=== PATIENT | male | born 1965 | race Caucasian/White ===

== ENCOUNTER 2020-03-29 13:53 | Inpatient (IN) | payer OTHER ==
--- NOTE | 2020-03-29 14:01 | BHS.RME ---
Substance Use & Tx History - Substance Use History Alcohol Substance amount: 1 pint vodka up to /5 Frequency of use: Daily Substance route: Oral Date of Last Use: 03/28/20 (started age 25) Heroin Substance amount: 1 gram Frequency of use: Daily Substance route: Inhalation (ex: sniffing or snorting) Date of Last Use: 03/27/20 (started age 41) Nicotine Substance amount: former smoker Physical/Psych/Mental Status - Behavior General Behavior: Increased activity (restlessness, agitation) Eye Contact: Normal - Cooperativeness Cooperativeness: Cooperative - Thinking Thought Processes: Tight, Logical, Goal Directed - Physical Health Problems Is patient presently having any pain?: No Does patient presently have any injuries (include location): No Does patient currently have a fever: No Is patient : No COWS - Scale Resting Pulse: 1= WA 81-100 Sweatin=Flushed/Facial Moisture Restless Observation: 1= Difficult to Sit Still Pupil Size: 1= Pupils >than Normal Bone or Joint Aches: 1= Mild Discomfort Runny Nose/ Eye Tearin= Nasal Congestion GI Upset > 30mins: 1= Stomach Cramp Tremor Observation: 1= Tremor [place], Not Seen Yawning Observation: 1= 1-2x During Session Anxiety or Irritability: 1=Feels Anxious/Irritable Goose Flesh Skin: 3=Piloerection COWS Score: 14 CIWA Nausea/Vomitin-Mild Nausea/No Vomiting Muscle Tremors: 4-Moderate,w/Arms Extend Anxiety: 3 Agitation: 3 Paroxysmal Sweats: 1-Minimal Palms Moist Orientation: 1-Uncertain about Date Tacttile Disturbances: 1-Very Mild Itch/Numbness Auditory Disturbances: 0-None Visual Disturbances: 0-None Headache: 2-Mild CIWA-Ar Total Score: 16
--- NOTE | 2020-03-29 14:34 | HP ---
COWS - Scale Resting Pulse: 1= MT 81-100 Sweatin=Flushed/Facial Moisture Restless Observation: 1= Difficult to Sit Still Pupil Size: 1= Pupils >than Normal Bone or Joint Aches: 1= Mild Discomfort Runny Nose/ Eye Tearin= Nasal Congestion GI Upset > 30mins: 1= Stomach Cramp Tremor Observation: 1= Tremor [place], Not Seen Yawning Observation: 1= 1-2x During Session Anxiety or Irritability: 1=Feels Anxious/Irritable Goose Flesh Skin: 3=Piloerection COWS Score: 14 CIWA Score Nausea/Vomitin-Mild Nausea/No Vomiting Muscle Tremors: 4-Moderate,w/Arms Extend Anxiety: 3 Agitation: 3 Paroxysmal Sweats: 1-Minimal Palms Moist Orientation: 1-Uncertain about Date Tacttile Disturbances: 1-Very Mild Itch/Numbness Auditory Disturbances: 0-None Visual Disturbances: 0-None Headache: 2-Mild CIWA-Ar Total Score: 16 - Admission Criteria [facility] Guidelines: Admission for Medically Managed Detox: Requires at least one of the followin. CIWA greater than 12 2. Seizures within the past 24 hours 3. Delirium tremens within the past 24 hours 4. Hallucinations within the past 24 hours 5. Acute intervention needed for co occurring medical disorder 6. Acute intervention needed for co occurring psychiatric disorder 7. Severe withdrawal that cannot be handled at a lower level of care (continued vomiting, continued diarrhea, abnormal vital signs) requiring intravenous medication and/or fluids 8. Admitting History and Physical - Admission Chief Complaint: Pt is a 54 yo M presenting for alcohol detox, patient has history of heroin use but persistently refuses methadone; "feeling sorry for myself for relapsing." History of Present Illness: Pt is a 54 yo M presenting for alcohol detox, patient has history of heroin use but persistently refuses methadone; "feeling sorry for myself for relapsing." Pt reports history of alcohol, heroin, and cocaine dependence. Pt was sober since 2014 and relapsed approximately 28 days ago. Pt reports possible trigger is of father in late December. Pt communicates frequently with his sponsors from AA/NA/[facility]. Pt meets criteria 2/2 to medical comorbidities. PMH - HCV+ (since 2002, viral load neg since 2003, untreated), HLD (takes simvastatin 20 mg qhs), osteoarthritis (motrin prn) PSH - tonsillectomy when younger Psych - ADHD; pt with possible hx of depression/bipolar (pt is non-specific regarding history; with possible hx of anti-depressant medications); no med ications currently Soc/Dom - lives in [place] - none currently; parole for criminal mischief in the 3rd degree Substance Use & Tx History - Substance Use History Alcohol Substance amount: 1 pint vodka up to 1/5 Frequency of use: Daily Substance route: Oral Date of Last Use: 03/28/20 (started age 25) Heroin Substance amount: 1 gram Frequency of use: Daily Substance route: Inhalation (ex: sniffing or snorting) Date of Last Use: 03/27/20 (started age 41) Cocaine amt - $200 worth per day frequency - daily date of last use: 03/27/20 Nicotine Substance amount: former smoker (quit 2014) History Source: Patient Limitations to Obtaining History: No Limitations Admission ROS S - HPI Allergies/Adverse Reactions: Allergies Allergy/AdvReac Type Severity Reaction Status Date / Time atorvastatin [From Lipitor] Allergy Verified 03/29/20 14:21 - Ebola screening Have you traveled outside of the country in the last 21 days: No Have you been sick,other than usual withdrawal symptoms: No Do you have a fever: Yes - Review of Systems Constitutional: Chills, Diaphoresis EENT: reports: No Symptoms Reported Respiratory: reports: No Symptoms reported Cardiac: reports: No Symptoms Reported GI: reports: Nausea : reports: No Symptoms Reported Musculoskeletal: reports: Joint Pain (chronic L knee pain fue to osteoarthritis) Integumentary: reports: Flushing, Pruritus, Rash (pt reports posion zeke; some scabs from recent bicycle injury (was treated [facility])) Neuro: reports: Headache, Tremors (mild tremors that can be seen) Endocrine: reports: No Symptoms Reported Hematology: reports: No Symptoms Reported Psychiatric: reports: Agitated, Anxious Patient History - Smoking Cessation Smoking history: Former smoker Have you smoked in the past 12 months: No Hx Chewing Tobacco Use: No Initiated information on smoking cessation: No Admission Physical Exam S - Vital Signs Vital Signs: BP 128/77 HR 81 RR 14 T 97.6 O2 sat 98% - Physical General Appearance: Yes: No Apparent Distress, Nourished, Appropriately Dressed HEENTM: Yes: EOMI, Hearing grossly Normal, Normocephalic, Normal Voice, M icrocephalic Respiratory: Yes: Lungs Clear, Normal Breath Sounds, No Respiratory Distress, No Accessory Muscle Use Neck: Yes: Supple, Trachea in good position Breast: Yes: Breast Exam Deferred Cardiology: Yes: Regular Rhythm, Regular Rate Abdominal: Yes: Normal Bowel Sounds, Non Tender, Soft Genitourinary: Yes: Other (deferred) Back: Yes: Normal Inspection Musculoskeletal: Yes: full range of Motion, Gait Steady Extremities: Yes: Normal Inspection, Normal Range of Motion, Non-Tender, Tremors (mild tremors) Neurological: Yes: Fully Oriented, Alert, Motor Strength 5/5, Normal Mood/Affect, Normal Response Integumentary: Yes: Normal Color, Dry, Clammy, Diaphoresis, Moist, Rash (R upper chest and R upper arm mild rash - "from posion zeke"), Other (rashes with excoriations; from itching the poison zeke rash" discoloration and multiple healing wounds in b/l lower extremities - pt was evaluated at [facility] and cleared without concerning findings, per pt. R index finger with healing wound from knife. Multiple scabs in all extremities from work-related injuries and excoriations.) - Diagnostic (1) HLD (hyperlipidemia) Current Visit: Yes Status: Acute (2) ADHD Current Visit: Yes Status: Chronic Qualifiers: Attention deficit-hyperactivity disorder type: unspecified Qualified Code(s): F90.9 - Attention-deficit hyperactivity disorder, unspecified type (3) Alcohol dependence Current Visit: Yes Status: Acute Qualifiers: Substance use status: in withdrawal Complication of substance-induced condition: uncomplicated Qualified Code(s): F10.230 - Alcohol dependence with withdrawal, uncomplicated (4) Opioid dependence Current Visit: Yes Status: Acute Qualifiers: Substance use status: uncomplicated Qualified Code(s): F11.20 - Opioid dependence, uncomplicated (5) Cocaine dependence Current Visit: Yes Status: Acute Qualifiers: Substance use status: uncomplicated Qualified Code(s): F14.20 - Cocaine dependence, uncomplicated (6) Osteoarthritis Current Visit: Yes Status: Chronic Qualifiers: Osteoarthritis location: knee Osteoarthritis type: primary Laterality: left Qualified Code(s): M17.12 - Unilateral primary osteoarthritis, left knee Cleared for Admission [facility] - Detox or Rehab [facility] Level of Care: Medically Managed Detox Regimen/Protocol: Librium Breathalyzer - Breathalyzer Breathalyzer: 0 Urine Drug Screen - Test Device Lot number: [id number] Expiration date: 10/05/21 - Control Is test valid?: Yes - Results Urine drug screen results: [facility]-Cocaine Inpatient Rehab Admission - Rehab Decision to Admit Inpatient rehab admission?: No
[2020-03-29] MEDS ORDERED: NICOTINE POLACRILEX 2 MG GUM BUC PRN (14:50)
[2020-03-29] MEDS ORDERED: MENTHOL/PHENOL 1 EACH UD MM PRN (14:50)
[2020-03-29] MEDS ORDERED: MAGNESIUM HYDROX 2400MG/30ML ORAL SUSPENSION 30 ML CUP PO PRN (14:50)
[2020-03-29] MEDS ORDERED: METHOCARBAMOL 500 MG TABLET PO PRN (14:50)
[2020-03-29] MEDS ORDERED: MAGNESIUM CITRATE 300 ML BOTTLE PO PRN (14:50)
[2020-03-29] MEDS ORDERED: MAG HYDROX/AL HYDROX/SIMETH 30 ML UNIT-DOSE CUP PO PRN (14:50)
[2020-03-29] MEDS ORDERED: ACETAMINOPHEN 325 MG TABLET (FP) PO PRN ×2 (14:50)
[2020-03-29] MEDS ORDERED: ONDANSETRON *ODT* 4 MG TABLET SL PRN (14:50)
[2020-03-29] MEDS ORDERED: chlordiazePOXIDE HCL 25 MG CAPSULE PO PRN (14:50)
[2020-03-29] MEDS ORDERED: BISMUTH SUBSALICYLATE 262 MG/15 ML BTL PO PRN (14:50)
[2020-03-29 15:44] LABS: HEMATOCRIT 44.5 % (35.4-49); HEMOGLOBIN 14.7 GM/dL (11.7-16.9); MCH 29.4 pg (25.7-33.7); MCHC 33.1 g/dl (32.0-35.9); MEAN CELL VOLUME 88.9 fl (80-96); PLATELET COUNT 327 K/MM3 (134-434); RBC 5.01 M/mm3 (4.00-5.60); RDW 13.3 % (11.9-15.9); WHITE BLOOD COUNT 5.1 K/mm3 (4.0-10.0)
[2020-03-29 15:55] LABS: ALBUMIN 3.5 g/dl (3.4-5.0); BILIRUBIN,TOTAL 0.2 mg/dL (0.2-1); BLOOD UREA NITROGEN 23.8 mg/dL (7-18); CALCIUM 8.6 mg/dL (8.5-10.1); CREATININE 0.8 mg/dL (0.55-1.3); POTASSIUM 4.2 mmol/L (3.5-5.1)
[2020-03-29] MEDS ORDERED: chlordiazePOXIDE HCL 25 MG CAPSULE PO SCH (17:00)
[2020-03-29] MEDS ORDERED: hydrOXYzine PAMOATE 25 MG CAPSULE (FP) PO SCH (18:00)
[2020-03-29] MEDS: IBUPROFEN 400 MG TABLET (FP) PO PRN (18:27)
[2020-03-29] MEDS ORDERED: LORazepam 1 MG TABLET PO PRN (21:11)
[2020-03-29] MEDS: MELATONIN 5 MG TABLETS PO SCH (23:24)
[2020-03-29] MEDS: THIAMINE HCL 100 MG TABLET (FP) PO SCH (23:24)
[2020-03-30] MEDS: LORazepam 2 MG TABLET PO SCH ×5 (00:47→22:47)
--- NOTE | 2020-03-30 09:55 | EKG ---
Test Reason : Blood Pressure : / mmHG Vent. Rate : 083 BPM Atrial Rate : 083 BPM P-R Int : 184 ms QRS Dur : 078 ms QT Int : 350 ms P-R-T Axes : 049 045 053 degrees QTc Int : 411 ms NORMAL SINUS RHYTHM NORMAL ECG NO PREVIOUS ECGS AVAILABLE Confirmed by LESLI CISNEROS MD ([id number]) on 03/30/2020 9:55:41 AM Referred By: Confirmed By:LESLI CISNEROS MD
--- NOTE | 2020-03-30 09:58 | PN ---
Teaching Attending Note Name of Resident: Michael Hough ATTENDING PHYSICIAN STATEMENT I saw and evaluated the patient. I reviewed the resident's note and discussed the case with the resident. I agree with the resident's findings and plan as documented. SUBJECTIVE: OBJECTIVE: ASSESSMENT AND PLAN: 1. Alcohol withdrawal 2. Opiate use Plan 1. Librium detox 2. Pt requests no methadone due to prior adverse reaction
[2020-03-30] MEDS: PRENATAL VITAMINS W/ FOLIC ACID TABLET (FP) PO SCH (10:38)
[2020-03-30] MEDS ORDERED: FUROSEMIDE 20 MG TABLET (FP) PO ONE (13:51)
--- NOTE | 2020-03-30 13:51 | PN ---
[facility] CIWA - CIWA Score Nausea/Vomitin-No Nausea/No Vomiting Muscle Tremors: 3 Anxiety: 2 Agitation: 2 Paroxysmal Sweats: 2 Orientation: 0-Oriented Tacttile Disturbances: 0-None Auditory Disturbances: 0-None Visual Disturbances: 0-None Headache: 0-None Present CIWA-Ar Total Score: 9 BHS Progress Note (SOAP) Subjective: sweats feet swelling restless agitation body aches Objective: 03/30/20 13:49 Vital Signs Temperature 97.5 F L 03/30/20 12:28 Pulse Rate 87 03/30/20 12:28 Respiratory Rate 18 03/30/20 12:28 Blood Pressure 121/79 03/30/20 12:28 O2 Sat by Pulse Oximetry (%) 95 03/30/20 12:28 Laboratory Tests 03/29/20 03/29/20 03/29/20 14:55 14:55 14:55 WBC 5.1 RBC 5.01 Hgb 14.7 Hct 44.5 MCV 88.9 MCH 29.4 MCHC 33.1 RDW 13.3 Plt Count 327 MPV 8.0 Sodium 140 Potassium 4.2 Chloride 109 H Carbon Dioxide 23 Anion Gap 8 BUN 23.8 H Creatinine 0.8 Est GFR (CKD-EPI)AfAm 118.20 Est GFR (CKD-EPI)NonAf 101.99 Random Glucose 108 H Calcium 8.6 Total Bilirubin 0.2 AST 11 L ALT 25 Alkaline Phosphatase 123 H Total Protein 7.0 Albumin 3.5 Syphilis Serology Non-reactive labs noted aaox3 ambulating no acute distress Assessment: 03/30/20 13:50 withdrawals pt refused methadone for detox; claims his feet swell up. during this stay in our detox no methadone taper was ordered some minor feet swelling noted; encouraged feet elevation and lasix 20mg x one ordered Plan: continue detox as ordered
[2020-03-30] MEDS: THIAMINE HCL 100 MG TABLET (FP) PO SCH (22:47)
[2020-03-30] MEDS: MELATONIN 5 MG TABLETS PO SCH (22:48)
[2020-03-31] MEDS ORDERED: chlordiazePOXIDE HCL 25 MG CAPSULE PO SCH (05:00)
[2020-03-31] MEDS: LORazepam 1 MG TABLET PO SCH ×4 (06:37→22:05)
[2020-03-31] MEDS: PRENATAL VITAMINS W/ FOLIC ACID TABLET (FP) PO SCH (10:22)
--- NOTE | 2020-03-31 11:36 | PN ---
S CIWA - CIWA Score Nausea/Vomitin-No Nausea/No Vomiting Muscle Tremors: 2 Anxiety: 1-Mildly Anxious Agitation: 2 Paroxysmal Sweats: 2 Orientation: 0-Oriented Tacttile Disturbances: 0-None Auditory Disturbances: 0-None Visual Disturbances: 0-None Headache: 0-None Present CIWA-Ar Total Score: 7 BHS Progress Note (SOAP) Subjective: sweats restless agitation body aches skin itchy/dry Objective: 03/31/20 11:37 Vital Signs Temperature 97.1 F L 03/31/20 08:50 Pulse Rate 92 H 03/31/20 08:50 Respiratory Rate 18 03/31/20 08:50 Blood Pressure 97/53 L 03/31/20 08:50 O2 Sat by Pulse Oximetry (%) 95 03/31/20 08:50 Laboratory Tests 03/29/20 03/29/20 03/29/20 14:55 14:55 14:55 WBC 5.1 RBC 5.01 Hgb 14.7 Hct 44.5 MCV 88.9 MCH 29.4 MCHC 33.1 RDW 13.3 Plt Count 327 MPV 8.0 Sodium 140 Potassium 4.2 Chloride 109 H Carbon Dioxide 23 Anion Gap 8 BUN 23.8 H Creatinine 0.8 Est GFR (CKD-EPI)AfAm 118.20 Est GFR (CKD-EPI)NonAf 101.99 Random Glucose 108 H Calcium 8.6 Total Bilirubin 0.2 AST 11 L ALT 25 Alkaline Phosphatase 123 H Total Protein 7.0 Albumin 3.5 Syphilis Serology Non-reactive COVID-19 (KLARISSA) 03/29/20 15:00 WBC RBC Hgb Hct MCV MCH MCHC RDW Plt Count MPV Sodium Potassium Chloride Carbon Dioxide Anion Gap BUN Creatinine Est GFR (CKD-EPI)AfAm Est GFR (CKD-EPI)NonAf Random Glucose Calcium Total Bilirubin AST ALT Alkaline Phosphatase Total Protein Albumin Syphilis Serology COVID-19 (KLARISSA) Not detected aaox3 ambulating no acute distress Assessment: 03/31/20 11:56 withdrawals Plan: continue detox increase fluids lac hydrin ordered
[2020-03-31] MEDS: AMMONIUM LACTATE 12% LOTION 225 GM BOTTLE TP SCH ×2 (12:28→22:05)
[2020-03-31] MEDS: IBUPROFEN 400 MG TABLET (FP) PO PRN (18:38)
[2020-03-31] MEDS: THIAMINE HCL 100 MG TABLET (FP) PO SCH (22:05)
[2020-03-31] MEDS: MELATONIN 5 MG TABLETS PO SCH (22:06)
[2020-04-01] MEDS ORDERED: chlordiazePOXIDE HCL 10 MG CAPSULE PO PRN
[2020-04-01] MEDS ORDERED: LORazepam 0.5 MG TABLET PO PRN
[2020-04-01] MEDS ORDERED: chlordiazePOXIDE HCL 10 MG CAPSULE PO SCH (05:00)
[2020-04-01] MEDS: LORazepam 0.5 MG TABLET PO SCH ×4 (05:25→23:45)
[2020-04-01] MEDS: IBUPROFEN 400 MG TABLET (FP) PO PRN ×2 (06:11→23:44)
[2020-04-01] MEDS: AMMONIUM LACTATE 12% LOTION 225 GM BOTTLE TP SCH ×2 (10:27→21:56)
[2020-04-01] MEDS: PRENATAL VITAMINS W/ FOLIC ACID TABLET (FP) PO SCH (11:15)
--- NOTE | 2020-04-01 18:34 | PN ---
S CIWA - CIWA Score Nausea/Vomitin-No Nausea/No Vomiting Muscle Tremors: None Anxiety: 0-No Anxiety, at Ease Agitation: 2 Paroxysmal Sweats: No Perspiration Orientation: 0-Oriented Tacttile Disturbances: 0-None Auditory Disturbances: 0-None Visual Disturbances: 0-None Headache: 0-None Present CIWA-Ar Total Score: 2 BHS Progress Note (SOAP) Subjective: Patient denies current Withdrawal / Detox symptoms and reports that he feels well overall at this time. Objective: Patient A & O X 3, Observed Ambulating on Detox Unit Unassisted. In No Acute Distress. 04/01/20 18:32 Vital Signs Temperature 98.0 F 04/01/20 17:28 Pulse Rate 76 04/01/20 17:28 Respiratory Rate 16 04/01/20 17:28 Blood Pressure 132/77 04/01/20 17:28 O2 Sat by Pulse Oximetry (%) 98 04/01/20 17:28 Laboratory Tests 03/29/20 03/29/20 03/29/20 14:55 14:55 14:55 WBC 5.1 RBC 5.01 Hgb 14.7 Hct 44.5 MCV 88.9 MCH 29.4 MCHC 33.1 RDW 13.3 Plt Count 327 MPV 8.0 Sodium 140 Potassium 4.2 Chloride 109 H Carbon Dioxide 23 Anion Gap 8 BUN 23.8 H Creatinine 0.8 Est GFR (CKD-EPI)AfAm 118.20 Est GFR (CKD-EPI)NonAf 101.99 Random Glucose 108 H Calcium 8.6 Total Bilirubin 0.2 AST 11 L ALT 25 Alkaline Phosphatase 123 H Total Protein 7.0 Albumin 3.5 Syphilis Serology Non-reactive COVID-19 (KLARISSA) 03/29/20 15:00 WBC RBC Hgb Hct MCV MCH MCHC RDW Plt Count MPV Sodium Potassium Chloride Carbon Dioxide Anion Gap BUN Creatinine Est GFR (CKD-EPI)AfAm Est GFR (CKD-EPI)NonAf Random Glucose Calcium Total Bilirubin AST ALT Alkaline Phosphatase Total Protein Albumin Syphilis Serology COVID-19 (KLARISSA) Not detected Lab results noted. Assessment: 04/01/20 18:33 WITHDRAWAL SYMPTOMS. ELEVATED ALKALINE PHOSPHATASE LEVEL. AZOTEMIA. Plan: Continue Detox. Increase Daily Oral Water Intake. Patient scheduled for D/C from detox unit tomorrow pending pre-discharge medical evaluation by covering medical provider.
[2020-04-01] MEDS: MELATONIN 5 MG TABLETS PO SCH (21:55)
[2020-04-01] MEDS: THIAMINE HCL 100 MG TABLET (FP) PO SCH (21:55)
[2020-04-02] MEDS ORDERED: chlordiazePOXIDE HCL 10 MG CAPSULE PO SCH (05:00)
[2020-04-02] MEDS ORDERED: LORazepam 0.5 MG TABLET PO ONE (05:00)
[2020-04-02] MEDS: IBUPROFEN 400 MG TABLET (FP) PO PRN (06:31)
[2020-04-02 06:43] VITALS: BP 129/89; PULSE 70; TEMP 97
--- NOTE | 2020-04-02 07:16 | PN ---
[facility] Progress Note Note: CLIENT LEFT THIS MORNING BEFORE SCHEDULE 8 AM DC. STATES HE NEEDS TO GET TO [facility]. HE IS A/O X3 NAD, DENIES WITHDRAWAL SX'S, SOB, C.P., DIZZINESS."I FEEL GREAT" NCAT AMBULATING W/O DIFFICULTY RESP- NL EFFORT Vital Signs Temperature 97.0 F L 04/02/20 05:36 Pulse Rate 70 04/02/20 05:36 Respiratory Rate 16 04/02/20 05:36 Blood Pressure 129/89 04/02/20 05:36 O2 Sat by Pulse Oximetry (%) 97 04/02/20 05:36
--- NOTE | 2020-04-02 12:07 | DS ---
[facility] Detox Discharge Summary Admission Date: 03/29/20 Discharge Date: 04/02/20 - History Present History: Alcohol Dependence, Cocaine Dependence, Opioid Dependence Additional Comments: Patient completed detox successfully and discharged safely in stable condition. Patient to follow up with his PCP within 1-2 weeks and for any abnormal lab results. Pertinent Past History: Alcohol dependence Opioid dependence Cocaine dependence HCV HLD OA - Physical Exam Results Vital Signs: Vital Signs Temperature 97.0 F L 04/02/20 05:36 Pulse Rate 70 04/02/20 05:36 Respiratory Rate 16 04/02/20 05:36 Blood Pressure 129/89 04/02/20 05:36 O2 Sat by Pulse Oximetry (%) 97 04/02/20 05:36 Pertinent Admission Physical Exam Findings: Withdrawal sxs Laboratory Tests 03/29/20 03/29/20 03/29/20 14:55 14:55 14:55 WBC 5.1 RBC 5.01 Hgb 14.7 Hct 44.5 MCV 88.9 MCH 29.4 MCHC 33.1 RDW 13.3 Plt Count 327 MPV 8.0 Sodium 140 Potassium 4.2 Chloride 109 H Carbon Dioxide 23 Anion Gap 8 BUN 23.8 H Creatinine 0.8 Est GFR (CKD-EPI)AfAm 118.20 Est GFR (CKD-EPI)NonAf 101.99 Random Glucose 108 H Calcium 8.6 Total Bilirubin 0.2 AST 11 L ALT 25 Alkaline Phosphatase 123 H Total Protein 7.0 Albumin 3.5 Syphilis Serology Non-reactive COVID-19 (KLARISSA) 03/29/20 15:00 WBC RBC Hgb Hct MCV MCH MCHC RDW Plt Count MPV Sodium Potassium Chloride Carbon Dioxide Anion Gap BUN Creatinine Est GFR (CKD-EPI)AfAm Est GFR (CKD-EPI)NonAf Random Glucose Calcium Total Bilirubin AST ALT Alkaline Phosphatase Total Protein Albumin Syphilis Serology COVID-19 (KLARISSA) Not detected Labs reviewed: bun high (PO hydration encouraged) - Treatment Hospital Course: Detox Protocol Followed, Detoxed Safely, Responded well, Discharged Condition Good - Diagnosis (1) Hepatitis C Status: Chronic (2) Alcohol dependence Status: Acute Qualifiers: Substance use status: in withdrawal Complication of substance-induced condition: uncomplicated Qualified Code(s): F10.230 - Alcohol dependence with withdrawal, uncomplicated (3) Azotemia Status: Acute (4) HLD (hyperlipidemia) Status: Chronic (5) Opioid dependence Status: Acute Qualifiers: Substance use status: uncomplicated Qualified Code(s): F11.20 - Opioid dependence, uncomplicated (6) Osteoarthritis Status: Chronic Qualifiers: Osteoarthritis location: knee Osteoarthritis type: primary Laterality: left Qualified Code(s): M17.12 - Unilateral primary osteoarthritis, left knee (7) Elevated blood-pressure reading, without diagnosis of hypertension Status: Acute - AMA Did Patient Leave Against Medical Advice: No (Patient instructed to follow up with PCP within 1-2 weeks)
[2020-04-03] MEDS ORDERED: chlordiazePOXIDE HCL 10 MG CAPSULE PO ONE (05:00)
== END 2020-04-02 07:05 | disposition home or self-care (01) | DRG 773 ==
LOC: YASAS 13:53 → Y6N 15:01
PROVIDERS: ADMIT Allergy & Immunology; ATTEND Allergy & Immunology
PROC: HZ2ZZZZ Detoxification Services for Substance Abuse Treatment (ICD-10-PCS; principal; 2020-03-29)
DX: F10.230 Alcohol dependence with withdrawal, uncomplicated (principal); F11.23 Opioid dependence with withdrawal; F14.20 Cocaine dependence, uncomplicated; F17.211 Nicotine dependence, cigarettes, in remission; F90.9 Attention-deficit hyperactivity disorder, unspecified type; E78.5 Hyperlipidemia, unspecified; B18.2 Chronic viral hepatitis C; M17.12 Unilateral primary osteoarthritis, left knee; R74.8 Abnormal levels of other serum enzymes; R03.0 Elevated blood-pressure reading, without diagnosis of hypertension; R79.89 Other specified abnormal findings of blood chemistry; Z88.8 Allergy status to other drugs, medicaments and biological substances
CPT/HCPCS: 36415; 80053; 85027; 86780; 93005; 93010; U0003